=== PATIENT | male | born 1970 | race Two or more races ===

== ENCOUNTER 2021-04-19 19:00 | Emergency (ER) | payer MEDICAID, OTHER ==
[~2021-04-19] VITALS: Ht 165.1 cm; Wt 90.7 kg
[2021-04-20 00:02] VITALS: BP 147/96
== END 2021-04-20 01:51 | disposition left against medical advice (07) ==
LOC: ER 19:03
DX: N48.89 Other specified disorders of penis (principal); R30.9 Painful micturition, unspecified; Z53.21 Procedure and treatment not carried out due to patient leaving prior to being seen by health care provider